=== PATIENT | male | born 1960 | race Caucasian/White ===

== ENCOUNTER 2017-06-22 10:46 | Observation (INO) | payer BC, OTHER, SELFPAY ==
[2017-06-22] VITALS (9 sets, daily range): BP systolic 125–163; BP diastolic 80–95; PULSE 69–85; RESP 14–18; TEMP 36.2–37.3; O2SAT 95–99; BMI 27.1; BMI 31.6
--- NOTE | 2017-06-22 10:54 | XR_ITS ---
XR chest AP HISTORY: ITS.REASON: chest pain ORDERING PHYSICIAN: Bon Walker MD PATIENT AGE: 57 years COMPARISON: 01/03/2016 FINDINGS: There is mild cardiomegaly. There has been a prior CABG. There is a 2 cm rounded opacity in the left midlung overlying the fourth interspace anteriorly. This is not readily apparent on previous study. In addition, there is an 8 mm nodule in the right midlung. This was present on the previous exam. The remaining lungs are clear. There is an old right rib fracture. IMPRESSION: 1. Prior CABG with mild cardiomegaly. 2. 2 cm opacity in the left midlung. Developing pulmonary nodule or dense area of consolidation is consideration. Consider chest CT for evaluation
--- NOTE | 2017-06-22 10:58 | CT_ITS ---
CT head/brain wo con HISTORY: Dizziness and near syncope ITS.REASON: dizziness near syncope ORDERING PHYSICIAN: Bon Walker MD PATIENT AGE: 57 years COMPARISON: None TECHNIQUE: Axial images obtained without contrast. Brain and bone windows reviewed. FINDINGS: No midline shift, mass effect, intracranial hemorrhage, hydrocephalus, or extra-axial fluid collection is evident. The calvarium has an unremarkable appearance. No mastoid effusion. No sinus air-fluid levels.. IMPRESSION: Negative CT head without contrast. No acute finding.
--- NOTE | 2017-06-22 11:16 | HMH.EDCP ---
ED Disposition Clinical Impression: Unstable angina, CAD (coronary artery disease), Lung nodule, solitary Clinical Impression: (Ruled Out): Lung nodule < 6cm on CT Disposition: Still a Patient Condition on Discharge: Good - Critical Care Critical Care Time: No Attestation: On 06/22/17, the high probability of a clinically significant, sudden or life threatening deterioration of the following system(s) required my full and direct attention, intervention and personal management. The time I documented below is in addition to time spent performing reported procedures but includes the following listed in this critical care notation. Medical Decision Making - Asad Inquiry Pt receiving controlled substance: No Asad was queried for this patient: No Vital Signs: 06/22/17 10:47 Temperature 99.1 F Temperature Source Oral Pulse Rate [Right Brachial] 76 Respiratory Rate 18 Blood Pressure [Right Arm] 152/93 Blood Pressure Mean [Right Arm] 112 Blood Pressure Source [Right Arm] Automatic Cuff Blood Pressure Position [Right Arm] Sitting 02 Sat by Pulse Oximetry 99 Oxygen Delivery Method Room Air - Lab Data Lab results reviewed: Yes: I reviewed the patient's lab results. Lab Results 06/22/17 11:02: WBC 10.2, RBC 4.62, Hgb 14.0 L, Hct 40.3 L, MCV 87.1, MCH 30.3, MCHC 34.8, RDW 12.9, Plt Count 366, MPV 7.2 L, Neut % (Auto) 75.0, Lymph % (Auto) 17.2, Geary % (Auto) 6.6, Eos % (Auto) 0.9, Baso % (Auto) 0.2, Neut # (Auto) 7.6, Lymph # (Auto) 1.8, Geary # (Auto) 0.7, Eos # (Auto) 0.1, Baso # (Auto) 0.0 06/22/17 11:02: Sodium 132 L, Potassium 3.7, Chloride 92 L, Carbon Dioxide 29, Anion Gap 14.7, BUN 10, Creatinine 1.18, Estimated Creat Clear 86, Estimated GFR 63, Est GFR ( Amer) 76, Glucose 110 H, Calcium 9.1, Total Bilirubin 0.5, AST 23, ALT 45, Alkaline Phosphatase 128 H, Total Creatine Kinase 37 L, CK-MB (CK-2) < 0.5, CK-MB (CK-2) Rel Index 1.4, Troponin I < 0.02, Total Protein 7.8, Albumin 4.2, Globulin 3.6 H, Albumin/Globulin Ratio 1.2 06/22/17 11:02: B-Natriuretic Peptide 38 Result diagrams: 06/22/17 11:02 06/22/17 11:02 Orders (Tests/Meds): ED MEDICATIONS Generic Name Dose Route Start Last Admin Trade Name Freq PRN Reason Stop Dose Admin Famotidine 20 mg 06/22/17 21:00 06/22/17 11:51 Pepcid 20mg/2ml Vial IV 07/22/17 20:59 20 mg BID IZAIAH Administration Nitroglycerin 0.5 gm 06/22/17 11:30 06/22/17 11:49 Nitroglycerin 1 Inch Oint Udp TD 07/22/17 11:29 0.5 gm Q6H IZAIAH Administration Discontinued Medications Generic Name Dose Route Start Last Admin Trade Name Freq PRN Reason Stop Dose Admin Enoxaparin Sodium 80 mg 06/23/17 09:00 Lovenox 80mg/0.8ml Syringe SQ 07/23/17 08:59 DAILY IZAIAH Enoxaparin Sodium 80 mg 06/22/17 11:21 06/22/17 11:49 Lovenox 80mg/0.8ml Syringe SQ 06/22/17 11:22 80 mg ONCE ONE Administration Famotidine 20 mg 06/22/17 11:50 06/22/17 12:14 Pepcid 20mg/2ml Vial IV 06/22/17 11:51 20 mg ONCE ONE Administration Sodium Chloride 8 ml 06/22/17 11:21 06/22/17 11:49 Saline Flush 10ml Syringe IV 06/22/17 11:22 8 ml ONCE ONE Administration ORDERS Category Date Time Status 12-lead EKG Request [ECG Request by /Saray] Stat Y 06/22/17 10:56 Stop Req - Radiology Data #1 Image(s): Chest Image Reviewed: Yes I reviewed the patient's radiology image, Yes I have reviewed radiologist's interpretation Preliminary Findings: Abnormal I discussed the chest x-ray report with the patient and I gave him a copy to follow-up on a lung nodule. - ECG Data Tracing #1 Normal sinus rhythm 77/min T-wave inversion in lead I aVL and anterior leads V1 to V4 unchanged done on 02/24/2016. ECG initial impression date: 06/22/17 ECG initial impression time: 11:20 Medical Decision Narrative: After Lovenox and nitroglycerin his chest pain reduced from 4/10 to 0/10. I spoke with his director of instruction Dr. Vega who advised
[2017-06-22 11:17] LABS: Basophils % 0.2 % (0.1-2.0); Eosinophils # 0.1 K/mm3 (0.0-0.4); Eosinophils % 0.9 % (0.1-12.0); Hematocrit 40.3 % (42.0-52.0); Lymphocytes # 1.8 K/mm3 (0.7-4.5); Lymphocytes % 17.2 K/mm3 (10-50); Mean Corpuscular HGB Conc 34.8 g/dL (31.8-35.4); Mean Corpuscular Hemoglobin 30.3 pg (27.0-31.2); Mean Corpuscular Volume 87.1 fl (80-94); Mean Platelet Volume 7.2 fl (7.4-10.4); Monocytes # 0.7 K/mm3 (0.1-1.0); Monocytes % 6.6 % (1.7-9.3); Neutrophils # 7.6 K/mm3 (1.8-7.8); Platelet Count 366 K/mm3 (142-424); Red Blood Count 4.62 M/mm3 (4.60-6.20); Red Cell Distribution Width 12.9 % (11.5-17.5); White Blood Count 10.2 K/mm3 (4.8-10.8)
--- NOTE | 2017-06-22 11:20 | ED_ITS ---
ED Disposition Clinical Impression: Unstable angina, CAD (coronary artery disease), Lung nodule, solitary Clinical Impression: (Ruled Out): Lung nodule < 6cm on CT Disposition: Still a Patient Condition on Discharge: Good - Critical Care Critical Care Time: No Attestation: On 06/22/17, the high probability of a clinically significant, sudden or life threatening deterioration of the following system(s) required my full and direct attention, intervention and personal management. The time I documented below is in addition to time spent performing reported procedures but includes the following listed in this critical care notation. Medical Decision Making - Asad Inquiry Pt receiving controlled substance: No Asad was queried for this patient: No Vital Signs: 06/22/17 10:47 Temperature 99.1 F Temperature Source Oral Pulse Rate [Right Brachial] 76 Respiratory Rate 18 Blood Pressure [Right Arm] 152/93 Blood Pressure Mean [Right Arm] 112 Blood Pressure Source [Right Arm] Automatic Cuff Blood Pressure Position [Right Arm] Sitting 02 Sat by Pulse Oximetry 99 Oxygen Delivery Method Room Air - Lab Data Lab results reviewed: Yes: I reviewed the patient's lab results. Lab Results 06/22/17 11:02: WBC 10.2, RBC 4.62, Hgb 14.0 L, Hct 40.3 L, MCV 87.1, MCH 30.3, MCHC 34.8, RDW 12.9, Plt Count 366, MPV 7.2 L, Neut % (Auto) 75.0, Lymph % (Auto ) 17.2, Hinds % (Auto) 6.6, Eos % (Auto) 0.9, Baso % (Auto) 0.2, Neut # (Auto) 7.6, Lymph # (Auto) 1.8, [place] # (Auto) 0.7, Eos # (Auto) 0.1, Baso # (Auto) 0.0 06/22/17 11:02: Sodium 132 L, Potassium 3.7, Chloride 92 L, Carbon Dioxide 29, Anion Gap 14.7, BUN 10, Creatinine 1.18, Estimated Creat Clear 86, Estimated GFR 63, Est GFR ( Amer) 76, Glucose 110 H, Calcium 9.1, Total Bilirubin 0.5, AST 23, ALT 45, Alkaline Phosphatase 128 H, Total Creatine Kinase 37 L, CK- MB (CK-2) < 0.5, CK-MB (CK-2) Rel Index 1.4, Troponin I < 0.02, Total Protein 7.8, Albumin 4.2, Globulin 3.6 H, Albumin/Globulin Ratio 1.2 06/22/17 11:02: B-Natriuretic Peptide 38 Result diagrams: 06/22/17 11:02 06/22/17 11:02 Orders (Tests/Meds): ED MEDICATIONS Generic Name Dose Route Start Last Admin Trade Name Freq PRN Reason Stop Dose Admin Famotidine 20 mg 06/22/17 21:00 06/22/17 11:51 Pepcid 20mg/2ml Vial IV 07/22/17 20:59 20 mg BID IZAIAH Administration Nitroglycerin 0.5 gm 06/22/17 11:30 06/22/17 11:49 Nitroglycerin 1 Inch Oint Udp TD 07/22/17 11:29 0.5 gm Q6H IZAIAH Administration Discontinued Medications Generic Name Dose Route Start Last Admin Trade Name Freq PRN Reason Stop Dose Admin Enoxaparin Sodium 80 mg 06/23/17 09:00 Lovenox 80mg/0.8ml Syringe SQ 07/23/17 08:59 DAILY IZAIAH Enoxaparin Sodium 80 mg 06/22/17 11:21 06/22/17 11:49 Lovenox 80mg/0.8ml Syringe SQ 06/22/17 11:22 80 mg ONCE ONE Administration Famotidine 20 mg 06/22/17 11:50 06/22/17 12:14 Pepcid 20mg/2ml Vial IV 06/22/17 11:51 20 mg ONCE ONE Administration Sodium Chloride 8 ml 06/22/17 11:21 06/22/17 11:49 Saline Flush 10ml Syringe IV 06/22/17 11:22 8 ml ONCE ONE Administration ORDERS Category Date Time Status 12-lead EKG Request [ECG Request by /Saray] Stat Y 06/22/17 10:56 Stop Req
[2017-06-22 11:47] LABS: Alanine Aminotransferase 45 U/L (12-78); Albumin Level 4.2 gm/dL (3.4-5.0); Albumin/Globulin Ratio 1.2 (1.1-1.8); Alkaline Phosphatase 128 U/L (46-116); Anion Gap 14.7 mEq/L (5-15); Aspartate Amino Transferase 23 U/L (15-37); Bilirubin,Total 0.5 mg/dL (0.2-1.0); Blood Urea Nitrogen 10 mg/dL (7-18); Calcium 9.1 mg/dL (8.5-10.1); Carbon Dioxide 29 mmol/L (21.0-32.0); Chloride 92 mmol/L (98-107); Creatine Kinase 37 U/L (39-308); Creatinine Clearance Estimated 86 mL/min (0-300); Creatinine,Serum 1.18 mg/dL (0.70-1.30); Estimated Glomerular Filt Rate 63 ml/min (>60); GFR (African American) 76 ML/MIN (>60); Globulin 3.6 gm/dl (1.3-3.2); Glucose 110 mg/dL (74-106); Potassium 3.7 mmoL/L (3.5-5.1); Sodium 132 mmol/L (136-145); Total Protein,Serum 7.8 gm/dL (6.4-8.2); Troponin I < 0.02 ng/ml (0.00-0.06)
[2017-06-22 11:48] LABS: CKMB Relative Index 1.4 U/L (0-4.0); Creatine Kinase MB < 0.5 mg/ml (0.0-3.6)
[2017-06-22 13:42] LABS: Troponin I < 0.02 ng/ml (0.00-0.06)
--- NOTE | 2017-06-22 13:52 | PC.NURSE ---
pt refused teds due to neuropathy in both feet. nurse aware.
[2017-06-22 14:03] LABS: Anion Gap 13.6 mEq/L (5-15); Blood Urea Nitrogen 10 mg/dL (7-18); Carbon Dioxide 29 mmol/L (21.0-32.0); Chloride 93 mmol/L (98-107); Chol/HDL Ratio 2.8 (1-3.5); Cholesterol 124 mg/dL (140-200); Creatinine Clearance Estimated 104 mL/min (0-300); Creatinine,Serum 1.05 mg/dL (0.70-1.30); Estimated Glomerular Filt Rate 72 ml/min (>60); GFR (African American) 87 ML/MIN (>60); Glucose 101 mg/dL (74-106); HDL Cholesterol 45 mg/dL (27-67); LDL Cholesterol 60 mg/dL (0-130); Potassium 3.6 mmoL/L (3.5-5.1); Sodium 132 mmol/L (136-145); Triglycerides 94 mg/dL (30-200); VLDL Cholesterol 19 mg/dL (0-40)
--- NOTE | 2017-06-22 15:11 | HMH.HP ---
*Admission Date: 06/22/17 *Chief complaint: chest pain *History of present illness: 57 year old male with a significant history of CAD with CABG in 2013 and [place] with 4 stents in 01/2016 presented to the ED with left sided chest pain that radiated to left shoulder/arm that began last night when he was laying in bed. Pain was accompanied by palpitations and mild shortness of breath. Patient reports he took 2 melatonin and slept well through the night. When he woke up this morning he continued to have chest/arm discomfort. He has been feeling faint especially when he is walking for approximately one week. Sometimes this feeling is accompanied by palpitations. He reports an increase in shortness of breath with exertion over the last few weeks, as well. In the ED, initial troponin was normal. EKG at baseline, with no new ischemic changes. CT head was negative. CXR showed a possible nodule left mid lung. Patient was admitted for serial enzymes and cardiology consultation. [facility] [place] History I have reviewed the patient's past medical history: Yes Medical History: Denies:: Cancer, Diabetes Mellitus Type 1, Diabetes Mellitus Type 2, MRSA Amputation: No Fractures: Yes (vertebrae) - *Social History Educational Level: Completed High School Smoking Status: Unknown if ever smoked Alcohol Intake: current Alcohol Intake Frequency:: 0-2 drinks per day - Psychiatric History Expresses thoughts of harming self/others: None Suicide Plan Description: No Plan Review of Systems - Review of Systems Review of systems:: pertinent systems reviewed and negative unless documented below - *Cardiovascular Reports chest pain, Reports shortness of breath with activity, Reports fast heart rate, Reports other Meds Home Medications Medication Instructions Recorded Confirmed Type Allopurinol [Allopurinol 300mg 300 mg PO HS 06/22/17 06/22/17 History tablet] Aspirin [Aspirin 325mg Tab] 325 mg PO DAILY 06/22/17 06/22/17 History Atorvastatin Calcium [Atorvastatin 80 mg PO HS 06/22/17 06/22/17 History 80mg Tab] Carvedilol [Carvedilol 6.25mg Tab] 6.25 mg PO DAILY 06/22/17 06/22/17 History Lisinopril/Hydrochlorothiazide 1 tab PO DAILY 06/22/17 06/22/17 History [Lisinopril-Hctz 20-25 mg Tab] Nortriptyline HCl 50 mg PO HS 06/22/17 06/22/17 History Oxycodone HCl/Acetaminophen 7.5 mg PO QID 06/22/17 06/22/17 History [Oxycodone W/Apap 325mg Tablet] Allergies Allergy/AdvReac Type Severity Reaction Status Date / Time diphenhydramine Allergy Unknown Verified 06/22/17 11:48 [From BENADRYL] Exam Vital signs and Labs for Last 24 Hours: Temp Pulse Resp BP Pulse Ox 98.1 F 69 18 127/85 95 06/22/17 13:43 06/22/17 13:43 06/22/17 13:43 06/22/17 13:43 06/22/17 13:43 I & O for Last 24 hours: Intake & Output 06/20/17 06/21/17 06/22/17 06/23/17 11:59 11:59 11:59 11:59 Weight 214 lb 8 oz Narrative: Alert and oriented x3. Rate and rhythm regular. No LE edema. No JVD. No carotid bruit. Pulses 2+ bilaterally. Lung sounds clear and equal throughout. Abdomen soft and nontender. Skin, pink warm and dry. Hypersensitivity to plantar aspect of bilateral feet. No neuro deficits. Assessment and Plan (1) Neuropathy Current visit: Yes Status: Acute Category: Medical Code(s): G62.9 - Polyneuropathy, unspecified (2) CAD (coronary artery disease) Current visit: Yes Status: Acute Category: Medical Code(s): I25.10 - Atherosclerotic heart disease of [place] coronary artery without angina pectoris (3) Lung nodule, solitary Current visit: Yes Status: Acute Category: Medical Code(s): R91.1 - Solitary pulmonary nodule (4) Unstable angina Current visit: Yes Status: Acute Category: Medical Code(s): I20.0 - Unstable angina - Assessment and plan all Dx Assessment and Plan for all problems:: Monitor telemetry. Serial troponins ordered. Echo ordered. Will obtain CT chest with contrast to
--- NOTE | 2017-06-22 15:17 | P.HP_ITS ---
*Admission Date: 06/22/17 *Chief complaint: chest pain *History of present illness: 57 year old male with a significant history of CAD with CABG in 2013 and [place] with 4 stents in 01/2016 presented to the ED with left sided chest pain that radiated to left shoulder/arm that began last night when he was laying in bed. Pain was accompanied by palpitations and mild shortness of breath. Patient reports he took 2 melatonin and slept well through the night. When he woke up this morning he continued to have chest/arm discomfort. He has been feeling faint especially when he is walking for approximately one week. Sometimes this feeling is accompanied by palpitations. He reports an increase in shortness of breath with exertion over the last few weeks, as well. In the ED, initial troponin was normal. EKG at baseline, with no new ischemic changes. CT head was negative. CXR showed a possible nodule left mid lung. Patient was admitted for serial enzymes and cardiology consultation. [facility] History I have reviewed the patient's past medical history: Yes Medical History: Denies:: Cancer, Diabetes Mellitus Type 1, Diabetes Mellitus Type 2, MRSA Amputation: No Fractures: Yes (vertebrae) - *Social History Educational Level: Completed High School Smoking Status: Unknown if ever smoked Alcohol Intake: current Alcohol Intake Frequency:: 0-2 drinks per day - Psychiatric History Expresses thoughts of harming self/others: None Suicide Plan Description: No Plan Review of Systems - Review of Systems Review of systems:: pertinent systems reviewed and negative unless documented below - *Cardiovascular Reports chest pain, Reports shortness of breath with activity, Reports fast heart rate, Reports other Meds Home Medications Medication Instructions Recorded Confirmed Type Allopurinol [Allopurinol 300mg 300 mg PO HS 06/22/17 06/22/17 History tablet] Aspirin [Aspirin 325mg Tab] 325 mg PO DAILY 06/22/17 06/22/17 History Atorvastatin Calcium [Atorvastatin 80 mg PO HS 06/22/17 06/22/17 History 80mg Tab] Carvedilol [Carvedilol 6.25mg Tab] 6.25 mg PO DAILY 06/22/17 06/22/17 History Lisinopril/Hydrochlorothiazide 1 tab PO DAILY 06/22/17 06/22/17 History [Lisinopril-Hctz 20-25 mg Tab] Nortriptyline HCl 50 mg PO HS 06/22/17 06/22/17 History Oxycodone HCl/Acetaminophen 7.5 mg PO QID 06/22/17 06/22/17 History [Oxycodone W/Apap 325mg Tablet] Allergies Allergy/AdvReac Type Severity Reaction Status Date / Time diphenhydramine Allergy Unknown Verified 06/22/17 11:48 [From BENADRYL] Exam Vital signs and Labs for Last 24 Hours: Temp Pulse Resp BP Pulse Ox 98.1 F 69 18 127/85 95 06/22/17 13:43 06/22/17 13:43 06/22/17 13:43 06/22/17 13:43 06/22/17 13:43 I & O for Last 24 hours: Intake & Output 06/20/17 06/21/17 06/22/17 06/23/17 11:59 11:59 11:59 11:59 Weight 214 lb 8 oz Narrative: Alert and oriented x3. Rate and rhythm regular. No LE edema. No JVD. No carotid bruit. Pulses 2+ bilaterally. Lung sounds clear and equal throughout. Abdomen soft and nontender. Skin, pink warm and dry. Hypersensitivity to plantar aspect of bilateral feet. No neuro deficits. Assessment and Plan (1) Neuropathy Current visit: Yes Status: Acute Category: Medical Code(s): G62.9 - Polyneuropathy, unspecified (2) CAD (coronary artery disease) Current vi
--- NOTE | 2017-06-22 15:22 | CT_ITS ---
CT chest w con HISTORY: Chest pain, abnormal chest x-ray, solitary pulmonary nodule, follow-up pulmonary nodule ITS.REASON: lung nodule ORDERING PHYSICIAN: Andrea Land MD PATIENT AGE: 57 years TECHNIQUE: Axial images obtained following the administration of 75 mL of Isovue 370 . Sagittal, and coronal reformatted images are also generated and reviewed. COMPARISON: Radiographic 06/22/[address] of the 11/24/2011 FINDINGS: Prior CABG. No evidence of aortic aneurysm. Normal heart size. No evidence of pericardial effusion. No mediastinal or hilar mass or adenopathy There is an area of focal prominent subpleural fat and peripheral fibrotic or atelectatic change within the lingula corresponding to the abnormal area on the radiograph.. Calcified granuloma is present in the right middle lobe corresponding to the additional nodule noted on the radiograph in addition, there is a noncalcified nodule in the right middle lobe measuring 6 mm not significant changed. There are atelectatic or fibrotic changes in the left upper lobe and lingula. No effusions or infiltrates are evident scattered small nodes are present in the axilla. There is mild bilateral gynecomastia. Upper abdominal images are unremarkable. IMPRESSION: 1. Radiographic abnormality corresponds to an area of fibrotic/atelectatic change with subpleural fat. No suspicious pulmonary nodules are evident. 2. Prior CABG. 3. Old granulomatous disease 4. Stable 6 mm noncalcified nodule in the right middle lobe
--- NOTE | 2017-06-22 15:26 | CA_ITS ---
PROCEDURE: 2-D M-mode and color Doppler study INDICATIONS FOR THE TEST: Chest painX COPD Heart Murmur Tobacco Smoking Palpitations Fatigue Syncope Edema Hypertension Diabetes Mellitus Rheumatic Fever [id number] Obesity Hyperlipidemia Family History HD Additional History CAD,CABG,STENTS PATIENT INFORMATION HEIGHT: 69 WEIGHT:214 GENDER: Male B/P:127/85 2-D/M-MODE INTERPRETATION: 2-D MEASUREMENTS OBSERVED VALUES IN CMS Right Ventricular Dimension (RVDd) 3.3 Interventricular Septum (Thickness)(IVsd) 1.1 Left Ventricular Internal Dimensions(LVIDd) 4.7 Left Ventricular Posterior Wall (Thickness)(LVPWd) 1.1 Aortic Root 3.5 Aortic Cusp Separation 2.0 Left Atrial Dimensions (LAD) 4.0 2D 1. Left atrium is mildly enlarged, left ventricle is normal size, there is mild concentric left ventricular hypertrophy, visually estimated ejection fraction 55% with no obvious regional wall motion abnormality. 2. The right atrium and right ventricle are mildly enlarged with normal contractility. 3. The aortic valve is thickened and calcified leaflet continue to display mobility. 4. The mitral and tricuspid valve leaflets are minimally thickened. 5. The pulmonic valve is poorly visualized. 6. No significant pericardial effusion noted. DOPPLER INTERROGATION: Doppler interrogation of the aortic, mitral and tricuspid valvular presence of mild mitral and tricuspid regurgitation, tricuspid and jet velocity insufficient for calculation of the right ventricular systolic pressure, diastolic parameters are inconclusive. CONCLUSION: 1. Mild biatrial enlargement, normal left ventricular size, mild concentric left ventricular hypertrophy, visually estimated ejection fraction 55% with no obvious regional wall motion abnormality, diastolic parameters are inconclusive. 2. Mildly enlarged right ventricle with normal contractility. 3. Mild mitral and tricuspid regurgitation 4. No significant pericardial effusion noted.
--- NOTE | 2017-06-22 16:29 | HMH.CNCARD ---
History of Present Illness Consult date: 06/22/17 Requesting physician: Andrea Land Consult reason: chest pain Chief complaint: chest pain, SOA, faint feeling Additional Medical History:: 1. Coronary artery disease A. History of coronary artery bypass grafting with FOSTER to LAD, SVG to first diagonal, SVG to PDA and SVG to first OM. B. Non-ST elevation SC, 01/05/2016, with subsequent cardiac cath and stenting on 01/06/2016. 4 drug-eluting stents placed to yu[place] circumflex occlusion via the vein graft. Persistent severe stenosis in the large ramus intermedius or first obtuse marginal which is being supplied by the saphenous vein graft. Persistent 80-90% stenosis and a large PDA that is being supplied by vein graft. Plain old balloon angioplasty to the left main artery reducing subtotal occlusion with slight improvement in flow. C. Recurrent chest pain, 01/06/2016, for which recurrent cardiac cath was undertaken. Left main subtotally occluded distally. LAD subtotally occluded distally. FOSTER patent to LAD. SVG to diagonal patent. SVG to PDA off the circumflex artery patent. It then backfills high OM artery. This ramus intermedius has ostial 90% stenosis but with TRISH-3 flow down the vessel. RCA is a small nondominant vessel with severe 90% stenosis in the proximal and mid segment. There is TRISH II flow down this artery. Strongly favor medical management with maximizing antianginals. 2. Hypertension 3. Hyperlipidemia 4. Bilateral neuropathy of the legs. History of present illness: 57 year old male with a significant history of CAD with CABG in 2013 and [place] with 4 stents in 01/2016 presented to the ED with left sided chest pain that radiated to left shoulder/arm that began last night when he was laying in bed. Pain was accompanied by palpitations and mild shortness of breath. Patient reports he took 2 melatonin and slept well through the night. When he woke up this morning he continued to have chest/arm discomfort. He has been feeling faint especially when he is walking for approximately one week. Sometimes this feeling is accompanied by palpitations. He reports an increase in shortness of breath with exertion over the last few weeks, as well. In the ED, initial troponin was normal. EKG at baseline, with no new ischemic changes. CT head was negative. CXR showed a possible nodule left mid lung. Patient was admitted for serial enzymes and cardiology consultation. The above per Susan Nieto APRN, for Dr. Land. Patient states he had been doing well since we last saw him in 2016. He has been seeing Dr. Myers in [facility] in association with his [facility] benefits. [facility] History Medical History: Reports:: Coronary Artery Disease, Hyperlipidemia, Hypertension, Myocardial Infarction Denies:: Cancer, Diabetes Mellitus Type 1, Diabetes Mellitus Type 2, MRSA Other Surgeries: Yes: CABG Amputation: No Fractures: Yes (vertebrae) - *Social History Educational Level: Completed High School Smoking Status: Unknown if ever smoked Alcohol Intake: current Alcohol Intake Frequency:: 0-2 drinks per day - Psychiatric History Expresses thoughts of harming self/others: None Suicide Plan Description: No Plan Meds Home Medications Medication Instructions Recorded Confirmed Type Allopurinol [Allopurinol 300mg 300 mg PO HS 06/22/17 06/22/17 History tablet] Aspirin [Aspirin 325mg Tab] 325 mg PO DAILY 06/22/17 06/22/17 History Atorvastatin Calcium [Atorvastatin 80 mg PO HS 06/22/17 06/22/17 History 80mg Tab] Carvedilol [Carvedilol 6.25mg Tab] 6.25 mg PO DAILY 06/22/17 06/22/17 History Lisinopril/Hydrochlorothiazide 1 tab PO DAILY 06/22/17 06/22/17 History [Lisinopril-Hctz 20-25 mg Tab] Nortriptyline HCl 50 mg PO HS 06/22/17 06/22/17 History Oxycodone HCl/Acetaminophen 7.5 mg PO QID 06/22/17 06/22/17 History [Oxycodone W/Apap 325mg Tablet] Allergies Allergy/AdvReac Type Severity Reaction Status Date / Time dip
--- NOTE | 2017-06-22 16:39 | P.CONS_ITS ---
History of Present Illness Consult date: 06/22/17 Requesting physician: Andrea Land Consult reason: chest pain Chief complaint: chest pain, SOA, faint feeling Additional Medical History:: 1. Coronary artery disease A. History of coronary artery bypass grafting with FOSTER to LAD, SVG to first diagonal, SVG to PDA and SVG to first OM. B. Non-ST elevation [place], 01/05/2016, with subsequent cardiac cath and stenting on 01/06/2016. 4 drug-eluting stents placed to [place] circumflex occlusion via the vein graft. Persistent severe stenosis in the large ramus intermedius or first obtuse marginal which is being supplied by the saphenous vein graft. Persistent 80-90% stenosis and a large PDA that is being supplied by vein graft. Plain old balloon angioplasty to the left main artery reducing subtotal occlusion with slight improvement in flow. C. Recurrent chest pain, 01/06/2016, for which recurrent cardiac cath was undertaken. Left main subtotally occluded distally. LAD subtotally occluded distally. FOSTER patent to LAD. SVG to diagonal patent. SVG to PDA off the circumflex artery patent. It then backfills high OM artery. This ramus intermedius has ostial 90% stenosis but with TRISH-3 flow down the vessel. RCA is a small nondominant vessel with severe 90% stenosis in the proximal and mid segment. There is TRISH II flow down this artery. Strongly favor medical management with maximizing antianginals. 2. Hypertension 3. Hyperlipidemia 4. Bilateral neuropathy of the legs. History of present illness: 57 year old male with a significant history of CAD with CABG in 2013 and [place] with 4 stents in 01/2016 presented to the ED with left sided chest pain that radiated to left shoulder/arm that began last night when he was laying in bed. Pain was accompanied by palpitations and mild shortness of breath. Patient reports he took 2 melatonin and slept well through the night. When he woke up this morning he continued to have chest/arm discomfort. He has been feeling faint especially when he is walking for approximately one week. Sometimes this feeling is accompanied by palpitations. He reports an increase in shortness of breath with exertion over the last few weeks, as well. In the ED, initial troponin was normal. EKG at baseline, with no new ischemic changes. CT head was negative. CXR showed a possible nodule left mid lung. Patient was admitted for serial enzymes and cardiology consultation. The above per Susan Nieto APRN, for Dr. Land. Patient states he had been doing well since we last saw him in 2016. He has been seeing Dr. Myers in [facility] in association with his [employer] benefits. [facility] History Medical History: Reports:: Coronary Artery Disease, Hyperlipidemia, Hypertension , Myocardial Infarction Denies:: Cancer, Diabetes Mellitus Type 1, Diabetes Mellitus Type 2, MRSA Other Surgeries: Yes: CABG Amputation: No Fractures: Yes (vertebrae) - *Social History Educational Level: Completed High School Smoking Status: Unknown if ever smoked Alcohol Intake: current Alcohol Intake Frequency:: 0-2 drinks per day - Psychiatric History Expresses thoughts of harming self/others: None Suicide Plan Description: No Plan Meds Home Medications Medication Instructions Recorded Confirmed Type Allopurinol [Allopurinol 300mg 300 mg PO HS 06/22/17 06/22/17 History tablet] Aspirin [Aspirin 325mg Tab] 325 mg PO DAILY 06/22/17 06/22/17 History Atorvastatin Calcium [Atorvastatin 80 mg PO HS 06/22/17 06/22/17 History 80mg Tab] Carvedilol [Carvedilol 6.25mg Tab] 6.25 mg PO DAILY 06/22/17 06/22/17 History
[2017-06-22 19:31] LABS: Troponin I < 0.02 ng/ml (0.00-0.06)
[2017-06-23] VITALS (18 sets, daily range): BP systolic 105–156; BP diastolic 65–89; PULSE 64–95; RESP 16–20; TEMP 36.6–37.1; O2SAT 95–100
--- NOTE | 2017-06-23 | IR_ITS ---
CARDIAC CATHETERIZATION DATE OF CATHETERIZATION:06/23/2017 12:27 PM PROCEDURES: 1. Left heart catheterization 2. Left ventriculogram 3. Selective coronary angiogram 4. Selective engagement of the left internal mammary artery 5. Selective engagement of the saphenous vein graft to the right coronary artery 6. Selective engagement of the saphenous vein graft to the circumflex artery 7. Selective engagement of the saphenous vein graft to the diagonal artery INDICATION FOR TEST: 1. Coronary artery disease 2. History of coronary bypass surgery 3. Angina pectoris class III to IV Informed consent was obtained prior to the procedure. COMPLICATIONS: None ESTIMATED BLOOD LOSS: Less than 10 ml. TECHNIQUE: One percent lidocaine used to anesthetize the right groin. The right femoral artery was accessed via the Seldinger technique and a 5 Syriac sheath was placed in the right femoral artery. A JL 4, JR4 catheter were used to perform left heart catheterization left ventriculogram selective coronary angiography as well as selective engagement of the 3 vein grafts and the left internal mammary artery. At the end of the procedure the patient was transferred to the postop holding area in stable condition for sheath removal ANGIOGRAPHIC RESULTS: 1. The left main artery ostially occluded 2. The left anterior descending artery ostially occluded 3. The circumflex artery ostially occluded 4. The right coronary artery has an anterior takeoff is a small vessel with an ostial 90% stenosis and then 100% occlusion at mid vessel 5. The RAMÍREZ ventriculogram reveals normal 65% 6. The left ventricular end-diastolic pressure 10 mmHg 7. The left internal mammary artery iswidely patent to the mid LAD and backfills several septal perforators. The LAD is a large vessel 8. The saphenous vein graft to the diagonal artery is patent however the diagonal artery itself is a small vessel 9. The saphenous vein graft to the obtuse marginal artery is patent. This backfills a first obtuse marginal artery. The zone between the first and second obtuse marginal artery is a proximally 60 mm in distance. There are 390% stenoses in between these 2 OM's 10. Saphenous vein graft to the right coronary artery is ostially occluded IMPRESSION: 1. Chronically occluded right coronary artery with chronically occluded saphenous vein graft to the right coronary 2. Widely patent FOSTER to a [place] LAD 3. Widely patent saphenous vein graft to a small to medium sized first diagonal artery 4. Widely patent saphenous vein graft to a second obtuse marginal artery which backfills a small to medium sized first obtuse marginal artery via 3 90% in-stent restenotic lesions 5. Normal ejection fraction 6. Normal left ventricular end-diastolic pressure PLAN: 1. Medical management. There is no way to reach the mid circumflex artery via the saphenous vein graft to the second obtuse marginal artery. This is tortuous long and would not reach the stenoses of interest. Medical management is most warranted 2. Risk factor modification 3. LDL less than 55 4. Avoidance of tobacco products 5. Cardiac rehabilitation
--- NOTE | 2017-06-23 03:09 | PC.NURSE ---
PT HAS NOT RESTED THIS SHIFT. EXPRESSES HE IS ANXIOUS FOR AM PROCEDURE. LUNGS ARE CTA. PT IS NSR ON MONITOR. NO C/O OF CHEST PAIN. C/O OF NEUROPATHY PAIN TO BILATERAL FEET, MED GIVEN PER MAR. VSS. NO OTHER CONCERNS AT THIS TIME, WILL CONT. TO MONITOR.
--- NOTE | 2017-06-23 03:16 | PC.NURSE ---
PT STATES HE TAKES PERCOCET QID PO AT HOME FOR HIS NEUROPATHY PAIN. PT IS CONCERNED HE IS GOING TO HAVE WITHDRAWLS BECAUSE HE HAS BEEN ON IT FOR SOME TIME AND TAKES IT EVERY DAY. HE IS REQUESTING TO BE PUT TO BACK ON THIS MED WHILE IN HOSPITAL.
--- NOTE | 2017-06-23 07:27 | P.CONPHA_ITS ---
[facility] Pharmacy VTE Monitoring - Patient Demographics Admission date: 06/22/17 Report Date: 06/23/17 Time: 07:27 Allergies/Adverse Reactions: Patient Allergies diphenhydramine [From BENADRYL] Allergy (Unknown, Verified 06/22/17 11:48) Height: 1.75 m Weight: 97.296 kg Patient Problems: Current Active Problems Unstable angina (Acute) CAD (coronary artery disease) (Acute) Lung nodule, solitary (Acute) Neuropathy (Acute) - VTE Risk Labs: VTE Related Lab Results Hgb 14.0 g/dL (14.1-18.0) L 06/22/17 11:02 Hct 40.3 % (42.0-52.0) L 06/22/17 11:02 Plt Count 366 K/mm3 (142-424) 06/22/17 11:02 BUN 10 mg/dL (7-18) 06/22/17 13:20 Creatinine 1.05 mg/dL (0.70-1.30) 06/22/17 13:20 Estimated Creat Clear 104 mL/min (0-300) 06/22/17 13:20 Was VTE Risk Assessment Performed: Yes VTE Score: 1 VTE Risk Level: Very Low Risk - Prophylaxis VTE Prophylaxis Ordered?: Yes Types of VTE Prophylaxis: TEDS Knee High Location of Applied Device: Bilateral Lower Extremeties - VTE Diagnosis Confirmed Treatment or plan recommended: Continue Current Treatment
--- NOTE | 2017-06-23 07:37 | PC.NURSE ---
report given to marta davis rn
--- NOTE | 2017-06-23 08:27 | HMH.ACPN2 ---
Internal Medicine - PN: Subj *Date: 06/23/17 *Time: 08:27 Interval history: Patient had a very comfortable night. Breathing easily. No complaints except for concerns about his maintenance pain medication. Exam Vital signs and Labs for Last 24 Hours: Temp Pulse Resp BP Pulse Ox 98.7 F 83 20 148/89 98 06/23/17 07:39 06/23/17 07:39 06/23/17 07:39 06/23/17 07:39 06/23/17 07:39 Laboratory Results - last 24 hr 06/22/17 19:10: Troponin I < 0.02 I & O for Last 24 hours: Intake & Output 06/20/17 06/21/17 06/22/17 06/23/17 11:59 11:59 11:59 11:59 Intake Total 872 / 872 Output Total 350 / 350 Balance 522 / 522 Weight 214 lb 8 oz Narrative: Patient is pleasant, alert, heart rate regular, lungs are clear, abdomen soft. Assessment and Plan (1) Unstable angina Current visit: Yes Status: Acute Category: Medical Code(s): I20.0 - Unstable angina (2) CAD (coronary artery disease) Current visit: Yes Status: Acute Category: Medical Code(s): I25.10 - Atherosclerotic heart disease of [place] coronary artery without angina pectoris Agree with catheterization today. Restart patient's home medication. (3) Neuropathy Current visit: Yes Status: Acute Category: Medical Code(s): G62.9 - Polyneuropathy, unspecified (4) Lung nodule, solitary Current visit: Yes Status: Acute Category: Medical Code(s): R91.1 - Solitary pulmonary nodule
--- NOTE | 2017-06-23 16:52 | HMH.DCSUM ---
General - General Admission date: 06/22/17 Discharge date: 06/23/17 HPI HPI: 57 year old male with a significant history of CAD with CABG in 2013 and [place] with 4 stents in 01/2016 presented to the ED with left sided chest pain that radiated to left shoulder/arm that began last night when he was laying in bed. Pain was accompanied by palpitations and mild shortness of breath. Patient reports he took 2 melatonin and slept well through the night. When he woke up this morning he continued to have chest/arm discomfort. He has been feeling faint especially when he is walking for approximately one week. Sometimes this feeling is accompanied by palpitations. He reports an increase in shortness of breath with exertion over the last few weeks, as well. In the ED, initial troponin was normal. EKG at baseline, with no new ischemic changes. CT head was negative. CXR showed a possible nodule left mid lung. Patient was admitted for serial enzymes and cardiology consultation. Hospital Course Hospital Course: Patient was admitted, ruled out for myocardial infarction. Because of his history, and character of his pain he was subjected to left heart cath today which revealed patent grafts, one area of [place] disease but this was not amenable to stenting. Please see the heart cath report. Patient tolerated this well, and this afternoon is in good spirits. It is felt that he would benefit from medical therapy and a reduction in lisinopril dose because of his orthostasis symptoms. He will be discharged home today and I will see him in 2 weeks. Objective Vital signs: Temp Pulse Resp BP Pulse Ox 97.9 F 72 20 111/66 99 06/23/17 12:00 06/23/17 15:35 06/23/17 15:35 06/23/17 15:35 06/23/17 15:35 Narrative: Patient is pleasant, left heart cath site looks great, heart rate regular, lungs are clear, no abnormalities of ENT structure or function, abdomen is soft and nontender. Results Labs on day of discharge: Labs from last 24 hours 06/22/17 19:10 Troponin I < 0.02 DS: Diagnosis - Discharge Diagnosis (1) Unstable angina Status: Resolved (2) CAD (coronary artery disease) Status: Chronic (3) Neuropathy Status: Chronic (4) Lung nodule, solitary Status: Resolved Discharge Plan - Patient Discharge Instructions ACTIVITY: Continue current activity DIET: low fat, low cholesterol - Follow up Plan Follow up with: Andrea Land MD [Primary Care Provider] - 07/07/17 11:45 am Disposition: Home, Self-Halfway Medications: Home Medications Medication Instructions Recorded Confirmed Type Allopurinol [Allopurinol 300mg 300 mg PO HS 06/22/17 06/22/17 History tablet] Aspirin [Aspirin 325mg Tab] 325 mg PO DAILY 06/22/17 06/22/17 History Atorvastatin Calcium [Atorvastatin 80 mg PO HS 06/22/17 06/22/17 History 80mg Tab] Carvedilol [Carvedilol 6.25mg Tab] 6.25 mg PO BID 06/22/17 06/23/17 History Lisinopril/Hydrochlorothiazide 1 tab PO DAILY 06/22/17 06/22/17 History [Lisinopril-Hctz 20-25 mg Tab] Nortriptyline HCl 50 mg PO HS 06/22/17 06/22/17 History Oxycodone HCl/Acetaminophen 1 tab PO QIDP PRN 06/22/17 06/23/17 History [Oxycodone W/Apap 325mg Tablet] Lesinurad [Zurampic] 200 mg PO DAILY 06/23/17 06/23/17 History Prescriptions/Medication Reconciliation: New Lisinopril [Lisinopril 10mg Tab] 10 mg PO DAILY 30 Days #30 tab Continue Aspirin [Aspirin 325mg Tab] 325 mg PO DAILY Carvedilol [Carvedilol 6.25mg Tab] 6.25 mg PO BID Atorvastatin Calcium [Atorvastatin 80mg Tab] 80 mg PO HS Nortriptyline HCl 50 mg PO HS Oxycodone HCl/Acetaminophen [Oxycodone W/Apap 325mg Tablet] 1 tab PO QIDP PRN PRN Reason: PAIN Allopurinol [Allopurinol 300mg tablet] 300 mg PO HS Lesinurad [Zurampic] 200 mg PO DAILY Discontinued Lisinopril/Hydrochlorothiazide [Lisinopril-Hctz 20-25 mg Tab] 1 tab PO DAILY
--- NOTE | 2017-06-23 16:56 | P.DS_ITS ---
General - General Admission date: 06/22/17 Discharge date: 06/23/17 HPI HPI: 57 year old male with a significant history of CAD with CABG in 2013 and [place] with 4 stents in 01/2016 presented to the ED with left sided chest pain that radiated to left shoulder/arm that began last night when he was laying in bed. Pain was accompanied by palpitations and mild shortness of breath. Patient reports he took 2 melatonin and slept well through the night. When he woke up this morning he continued to have chest/arm discomfort. He has been feeling faint especially when he is walking for approximately one week. Sometimes this feeling is accompanied by palpitations. He reports an increase in shortness of breath with exertion over the last few weeks, as well. In the ED, initial troponin was normal. EKG at baseline, with no new ischemic changes. CT head was negative. CXR showed a possible nodule left mid lung. Patient was admitted for serial enzymes and cardiology consultation. Hospital Course Hospital Course: Patient was admitted, ruled out for myocardial infarction. Because of his history, and character of his pain he was subjected to left heart cath today which revealed patent grafts, one area of [place] disease but this was not amenable to stenting. Please see the heart cath report. Patient tolerated this well, and this afternoon is in good spirits. It is felt that he would benefit from medical therapy and a reduction in lisinopril dose because of his orthostasis symptoms. He will be discharged home today and I will see him in 2 weeks. Objective Vital signs: Temp Pulse Resp BP Pulse Ox 97.9 F 72 20 111/66 99 06/23/17 12:00 06/23/17 15:35 06/23/17 15:35 06/23/17 15:35 06/23/17 15:35 Narrative: Patient is pleasant, left heart cath site looks great, heart rate regular, lungs are clear, no abnormalities of ENT structure or function, abdomen is soft and nontender. Results Labs on day of discharge: Labs from last 24 hours 06/22/17 19:10 Troponin I < 0.02 DS: Diagnosis - Discharge Diagnosis (1) Unstable angina Status: Resolved (2) CAD (coronary artery disease) Status: Chronic (3) Neuropathy Status: Chronic (4) Lung nodule, solitary Status: Resolved Discharge Plan - Patient Discharge Instructions ACTIVITY: Continue current activity DIET: low fat, low cholesterol - Follow up Plan Follow up with: Andrea Land MD [Primary Care Provider] - 07/07/17 11:45 am Disposition: Home, Self-Nursing Home Medications: Home Medications Medication Instructions Recorded Confirmed Type Allopurinol [Allopurinol 300mg 300 mg PO HS 06/22/17 06/22/17 History tablet] Aspirin [Aspirin 325mg Tab] 325 mg PO DAILY 06/22/17 06/22/17 History Atorvastatin Calcium [Atorvastatin 80 mg PO HS 06/22/17 06/22/17 History 80mg Tab] Carvedilol [Carvedilol 6.25mg Tab] 6.25 mg PO BID 06/22/17 06/23/17 History Lisinopril/Hydrochlorothiazide 1 tab PO DAILY 06/22/17 06/22/17 History [Lisinopril-Hctz 20-25 mg Tab] Nortriptyline HCl 50 mg PO HS 06/22/17 06/22/17 History Oxycodone HCl/Acetaminophen 1 tab PO QIDP PRN 06/22/17 06/23/17 History [Oxycodone W/Apap 325mg Tablet] Lesinurad [Zurampic] 200 mg PO DAILY 06/23/17 06/23/17 History Prescriptions/Medication Reconciliation: Yonas Allen
== END 2017-06-23 17:43 | disposition home or self-care (01) ==
LOC: ER 11:59 → 2ND 12:41 → ER 14:52
PROVIDERS: Internal Medicine; Admitting Provider Internal Medicine Adolescent Medicine; Emergency Provider Emergency Medicine; Family Provider Internal Medicine Adolescent Medicine; PCP Internal Medicine Adolescent Medicine; Visit Provider Internal Medicine Adolescent Medicine
DX: I25.110 Atherosclerotic heart disease of native coronary artery with unstable angina pectoris (principal); R07.9 Chest pain, unspecified; Z95.1 Presence of aortocoronary bypass graft; Z95.5 Presence of coronary angioplasty implant and graft; I25.2 Old myocardial infarction; R91.1 Solitary pulmonary nodule; G62.9 Polyneuropathy, unspecified
CPT/HCPCS: 36415; 70450; 71045; 71260; 80048; 80053; 80061; 82550; 82553; 83880; 84484; 85025; 93005; 93306; 93459; 96374; 99152; 99284; C1725; C1769; C1894; G0378; J1644; J2405; Q9967